=== PATIENT | male | born 1945 | race Caucasian/White ===

== ENCOUNTER 2021-12-24 15:00 | Outpatient (RCR) | payer MEDICARE, OTHER, SELFPAY ==
--- NOTE | 2022-01-14 11:36 | PC.NURSE ---
Patients son, Giovany, Called to get results of Xrays as they missed a call from urgent care last evening. With permission of patient, Xray report was verbally read to son. They had no questions or concerns at this time. Recommended following up with PCP or Urgent care if more questions or concerns arise.
== END 2022-07-22 16:19 | disposition home or self-care (01) ==
PROVIDERS: Visit Provider Physical Medicine & Rehabilitation
DX: Z89.612 Acquired absence of left leg above knee (principal); Z78.9 Other specified health status; R26.89 Other abnormalities of gait and mobility; M25.562 Pain in left knee; Z51.89 Encounter for other specified aftercare
CPT/HCPCS: 97110; 97162

== ENCOUNTER 2022-03-12 13:40 | Emergency (ER) | payer MEDICARE, OTHER, SELFPAY ==
[2022-03-12] VITALS (28 sets, daily range): BP systolic 80–143; BP diastolic 34–93; PULSE 51–71; RESP 24; TEMP 35.6; O2SAT 87–97; BMI 51.7
--- NOTE | 2022-03-12 14:59 | CRLHL7_ITS ---
For Patients: As a result of the Century Cures Act, medical imaging exams and procedure reports are released immediately into your electronic medical record. You may view this report before your referring provider. If you have questions, please contact your health care provider. INDICATION: Shortness of breath. TECHNIQUE: Chest 1 views. COMPARISON: None. FINDINGS: Cardiovascular and mediastinum: Cardiomegaly. Sternotomy wires. Lungs and pleural spaces: Low lung volumes. Subtle interstitial opacities which could be mild pulmonary edema. No sign of infiltrate or mass. No sign of pleural effusion. No pneumothorax. Bones and soft tissues: No significant findings. IMPRESSION: Low lung volumes with cardiomegaly, and possible mild pulmonary edema. Dictated by Adam Leon MD @ 03/12/2022 3:57:52 PM (Electronically Signed)
--- NOTE | 2022-03-12 15:01 | ED.GENADULT ---
HPI - General Adult General Chief complaint: Urogenital Problems, Male Stated complaint: UTI Time Seen by Provider: 03/12/22 14:07 History of Present Illness HPI narrative: This 76-year-old male comes in reporting symptoms of dysuria and shortness of breath. He has some chronic shortness of breath but things have worsened recently. He does arrive with oximetry at 87% on room air. He is taking Lasix 80 mg daily. 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 He does have right lower extremity edema. He also reports symptoms of dysuria with increased frequency. He has had increased weakness over the past 3 days. Related Data Home Medications Medication Instructions Recorded Confirmed atorvastatin 80 mg tablet 80 mg PO DAILY 01/13/22 03/12/22 betamethasone, augmented 0.05 % g topical 01/13/22 01/13/22 topical cream blood sugar diagnostic (Accu-Chek #10 ea 01/13/22 01/13/22 Guide test strips) carvedilol 25 mg tablet 25 mg PO DAILY 01/13/22 03/12/22 citalopram 10 mg tablet 10 mg PO 01/13/22 01/13/22 citalopram 20 mg tablet 20 mg PO 01/13/22 01/13/22 ezetimibe 10 mg tablet 10 mg PO 01/13/22 01/13/22 furosemide 40 mg tablet 80 mg PO Q12H 01/13/22 03/12/22 hydralazine 25 mg tablet 25 mg PO DAILY 01/13/22 03/12/22 insulin glargine 100 unit/mL (3 ml subcut 01/13/22 01/13/22 mL) subcutaneous pen (Lantus Solostar U-100 Insulin) insulin glargine U-300 conc 300 60 unit subcut BID 01/13/22 03/12/22 unit/mL (1.5 mL) subcutaneous pen (Toujeo SoloStar U-300 Insulin) insulin lispro 100 unit/mL subcut 01/13/22 01/13/22 subcutaneous pen (Humalog KwikPen (U-100) Insulin) isosorbide mononitrate 30 mg 30 mg PO DAILY 01/13/22 03/12/22 tablet,extended release 24 hr isosorbide mononitrate 60 mg 60 mg PO DAILY 01/13/22 03/12/22 tablet,extended release 24 hr paroxetine HCl 40 mg tablet ea PO 01/13/22 01/13/22 pen needle, diabetic 31 gauge x #50 ea 01/13/22 01/13/22/ (BD Ultra-Fine Mini Pen Needle) potassium chloride 20 mEq 20 meq PO DAILY 01/13/22 03/12/22 tablet,extended release(part/cryst) tamsulosin 0.4 mg capsule 0.4 mg PO Q24H 01/13/22 03/12/22 amlodipine 2.5 mg tablet 2.5 mg PO DAILY 03/12/22 03/12/22 aspirin 81 mg tablet,delayed 81 mg PO DAILY 03/12/22 03/12/22 release (Adult Low Dose Aspirin) escitalopram oxalate 20 mg tablet 20 mg PO DAILY 03/12/22 03/12/22 ezetimibe 10 mg tablet 10 mg PO DAILY 03/12/22 03/12/22 omeprazole 20 mg capsule,delayed 20 mg PO DAILY 03/12/22 03/12/22 release Previous Rx's Medication Instructions Recorded cyclobenzaprine 10 mg tablet 10 mg PO TID PRN muscle spasm #20 01/13/22 tabs apixaban 5 mg (74 tabs) tablets in See Rx Instructions PO .COMPLEX 03/12/22 a dose pack (M-Files DVT-PE Treat #74 ea 30D Start) cephalexin 500 mg capsule 500 mg PO TID 10 days #30 caps 03/12/22 Allergies Allergy/AdvReac Type Severity Reaction Status Date / Time gabapentin Allergy Unknown Verified 03/12/22 13:52 Review of Systems Status of ROS: Reports: 10 or more systems reviewed and unremarkable except as noted in History and below Narrative: Constitutional: No fevers, no weight gain or loss. Eyes: No discharge. No vision changes. HENT: No congestion, no sore throat, no ear pain. Cardiovascular: No chest pain, no palpitations. Respiratory: No cough. Shortness of breath as described above. Gastrointestinal: No abdominal pain, no vomiting, no diarrhea. Genitourinary: Dysuria symptoms with increased frequency. Musculoskeletal: Normal range of motion. Skin: No rashes, no pruritis. Neurological: No dizziness, weakness, sensory change, speech change. Endo/Heme/Allergies: No bruising or bleeding. No polydipsia. Pysch: no suicidality, no anxiety, no insomnia. All other systems reviewed and are negative. PFSH PFS Social History Smoking Status: Former smoker How often do you have a drink containing alcohol: monthly or less How often do you have six or more drinks on one occasion: Never AUDIT-C Alcohol total score: 1 Non-prescribed substance use: denies use Exam Narrative: Exam Narrative: Constitutional: Well-developed, well-nourished, no acute distress. HEENT: Normocephalic, atraumatic. Neck: Normal range of motion. Nontender. Supple. Heart: Irregular. No murmurs. Normal rate. Intact distal pulses. Lungs: Bilateral wheezes. No chest discomfort. Abdomen: Normal bowel sounds. Nontender. No rebound tenderness. Genitalia: Deferred. Back: Normal range of motion. Extremities: Left above the knee amputation. Right lower extremity pedal edema. Skin: Intact. No rash. Warm. No erythema or pallor. Neurologic: No altered sensation. No weakness. Alert and oriented. Psychiatric: No suicidality. No anxiety or depression. No insomnia. Nursing notes and vitals signs are reviewed. Const: Vital Signs, click to edit/add: Vital Signs - 24 hr 03/12/22 13:45 03/12/22 14:00 03/12/22 14:36 Temperature 96.0 F L Pulse Rate 62 Pulse Rate [Right Pulse Oximeter] 71 Respiratory Rate 24 Blood Pressure Blood Pressure [Le ft Upper Arm] 143/73 H Pulse Oximetry 87 L 95 95 Oxygen Delivery Me thod Room Air Nasal Cannula Nasal Cannula Oxygen Flow Rate 1 1 03/12/22 14:45 03/12/22 15:00 03/12/22 15:04 Temperature Pulse Rate 67 66 71 Pulse Rate [Right Pulse Oximeter] Respiratory Rate Blood Pressure 103/43 L Blood Pressure [Le ft Upper Arm] Pulse Oximetry 95 96 96 Oxygen Delivery Me thod Nasal Cannula Nasal Cannula Nasal Cannula Oxygen Flow Rate 1 1 1 03/12/22 15:15 03/12/22 15:30 03/12/22 15:32 Temperature Pulse Rate 65 59 L 62 Pulse Rate [Right Pulse Oximeter] Respiratory Rate Blood Pressure 97/34 L Blood Pressure [Le ft Upper Arm] Pulse Oximetry 96 94 95 Oxygen Delivery Me thod Nasal Cannula Nasal Cannula Nasal Cannula Oxygen Flow Rate 1 1 1 03/12/22 15:45 03/12/22 16:00 03/12/22 16:06 Temperature Pulse Rate 70 54 L 60 Pulse Rate [Right Pulse Oximeter] Respiratory Rate Blood Pressure 110/50 L Blood Pressure [Le ft Upper Arm] Pulse Oximetry 94 93 91 Oxygen Delivery Me thod Nasal Cannula Nasal Cannula Nasal Cannula Oxygen Flow Rate 1 1 1 03/12/22 16:07 03/12/22 16:15 03/12/22 16:30 Temperature Pulse Rate 54 L 62 Pulse Rate [Right Pulse Oximeter] Respiratory Rate Blood Pressure Blood Pressure [Le ft Upper Arm] Pulse Oximetry 96 90 94 Oxygen Delivery Me thod Nasal Cannula Nasal Cannula Nasal Cannula Oxygen Flow Rate 1 1 1 03/12/22 16:31 03/12/22 16:45 03/12/22 17:11 Temperature Pulse Rate 64 61 63 Pulse Rate [Right Pulse Oximeter] Respiratory Rate Blood Pressure 112/90 H Blood Pressure [Le ft Upper Arm] Pulse Oximetry 88 93 97 Oxygen Delivery Me thod Nasal Cannula Nasal Cannula Nasal Cannula Oxygen Flow Rate 1 1 1 03/12/22 17:15 Temperature Pulse Rate 54 L Pulse Rate [Right Pulse Oximeter] Respiratory Rate Blood Pressure Blood Pressure [Le ft Upper Arm] Pulse Oximetry 95 Oxygen Delivery Me thod Nasal Cannula Oxygen Flow Rate 1 Course Vital Signs Vital signs: Initial Vital Signs Temperature 96.0 F L 03/12/22 13:45 Temperature Source Temporal Artery Scan 03/12/22 13:45 Pulse Rate 71 03/12/22 13:45 Respiratory Rate 24 03/12/22 13:45 Blood Pressure 143/73 H 03/12/22 13:45 Blood Pressure Mean 96 03/12/22 13:45 Blood Pressure Position Sitting 03/12/22 13:45 Pulse Oximetry 87 L 03/12/22 13:45 Oxygen Delivery Method 03/12/22 13:45 Vital Signs Temperature 96.0 F L 03/12/22 13:45 Pulse Rate 71 03/12/22 13:45 Respiratory Rate 24 03/12/22 13:45 Blood Pressure 143/73 H 03/12/22 13:45 Pulse Oximetry 87 L 03/12/22 13:45 Oxygen Delivery Method 03/12/22 13:45 Temperature 96.0 F L 03/12/22 13:45 Pulse Rate 54 L 03/12/22 17:15 Respiratory Rate 24 03/12/22 13:45 Blood Pressure 112/90 H 03/12/22 16:31 Pulse Oximetry 95 03/12/22 17:15 Oxygen Delivery Method 03/12/22 17:15 Oxygen Flow Rate 1 03/12/22 17:15 Medical Decision Making MDM Narrative Medical decision making narrative: This patient comes in with primary complaint of dysuria symptoms. Urinalysis shows obvious sign of infection. The patient received an IV dose of Rocephin 1000 mg. He also has some acute on chronic shortness of breath. He does arrive with oximetry in the upper 80s% at rest. He did receive 1 L of nasal cannula oxygen and this brought him up nicely into the mid to upper 90s%. Chest x-ray shows no acute findings. His B type natriuretic peptide returns at 2470. Glucose is 210. His D-dimer returns a bit above [address] scan is ordered to rule out pulmonary embolism. He does have some small clots in the segmental pulmonary vasculature. These are not causing any significant consequences and there is no right heart strain. I relayed this information to the patient and recommended anticoagulation. He agreed to Eliquis which is given the 1st tablet for today and a prescription going forward. Was noted that his heart rate sometimes dips down to 40 or even the upper 30s. He is on hydralazine, amlodipine, and Coreg. His Coreg dosing is 25 mg twice daily. His blood pressure was around 110? systolic and heart rate routinely in the 40s or low 50s. I advised him to discontinue the Coreg for now and follow-up with his primary physician. He wishes to return home. I did turn off his oxygen and he was maintaining sufficient oximetry in the low 90s% on room air. He received a prescription for Keflex also. Lab Data Labs: Lab Results 03/12/22 03/12/22 03/12/22 Range/Units 14:37 14:51 14:59 WBC 10.64 (4.50-11.00) K/uL RBC 3.81 L (4.30-5.90) m/uL Hgb 11.7 L (13.5-17.5) gm/dL Hct 36.8 L (37.0-53.0) % MCV 97 (80-100) fL MCH 31 (26-34) pg MCHC 32 (32-36) gm/dL RDW Coeff of Danny 14.5 (11.5-15.5) % Plt Count 89 L (140-440) K/uL Neut % (Auto) 72.5 H (42.0-72.0) % Lymph % (Auto) 13.2 L (20-44) % Ballard % (Auto) 12.4 H (0.0-11.0) % Eos % (Auto) 1.4 (0.0-7.0) % Baso % (Auto) 0.2 (0.0-3.0) % Neut # (Auto) 7.70 H (1.7-7.0) K/uL Lymph # (Auto) 1.40 (0.90-2.90) K/uL Ballard # (Auto) 1.30 H (0.00-0.90) K/UL Eos # (Auto) 0.15 (0.00-0.50) K/uL Baso # (Auto) 0.02 (0.00-0.30) K/uL D-Dimer Quant (PE/DVT) (0.00-0.50) ug/ml Sodium (135-149) mmol/L Potassium (3.6-5.1) mmol/L Chloride (96-114) mmol/L Carbon Dioxide (20-32) mmol/L BUN (7-30) mg/dL Creatinine (0.5-1.5) mg/dL Estimated Creat Clear Estimated GFR ml/min Glucose (60-115) mg/dL Calcium (8.4-10.6) mg/dL NT-Pro-B Natriuret Pep pg/mL Urine Color Yellow (Yellow) Urine Appearance Cloudy A (Clear) Urine pH 6.0 (5.0-8.5) Ur Specific [place] 1.015 (1.000-1.030) Urine Protein 2+ A (Negative) Urine Glucose (UA) Negative (Negative) Urine Ketones Negative (Negative) Urine Blood 3+ A (Negative) Urine Nitrite Positive A (Negative) Urine Bilirubin Negative (Negative) Urine Urobilinogen 2.0 A (0.2-1.0) Ur Leukocyte Esterase 3+ A (Negative) Urine RBC >100 A (0-2) Urine WBC >100 A (0-5) Ur Squamous Epith Cells None (None-Few) Urine Bacteria Many A (None) SARS-CoV-2 (PCR) Negative SARS-CoV-2 (Negative) Influenza Type A (PCR) Negative PCR FLU A (Negative) Influenza Type B (PCR) Negative PCR FLU B (Negative) RSV (PCR) Negative PCR RSV (Negative) POC Troponin I (0.01-0.04) ng/ml 03/12/22 03/12/22 03/12/22 Range/Units 14:59 14:59 14:59 WBC (4.50-11.00) K/uL RBC (4.30-5.90) m/uL Hgb (13.5-17.5) gm/dL Hct (37.0-53.0) % MCV (80-100) fL MCH (26-34) pg MCHC (32-36) gm/dL RDW Coeff of Danny (11.5-15.5) % Plt Count (140-440) K/uL Neut % (Auto) (42.0-72.0) % Lymph % (Auto) (20-44) % Ballard % (Auto) (0.0-11.0) % Eos % (Auto) (0.0-7.0) % Baso % (Auto) (0.0-3.0) % Neut # (Auto) (1.7-7.0) K/uL Lymph # (Auto) (0.90-2.90) K/uL Ballard # (Auto) (0.00-0.90) K/UL Eos # (Auto) (0.00-0.50) K/uL Baso # (Auto) (0.00-0.30) K/uL D-Dimer Quant (PE/DVT) 2.07 H (0.00-0.50) ug/ml Sodium 136 (135-149) mmol/L Potassium 3.8 (3.6-5.1) mmol/L Chloride 100 (96-114) mmol/L Carbon Dioxide 31 (20-32) mmol/L BUN 24 (7-30) mg/dL Creatinine 1.2 (0.5-1.5) mg/dL Estimated Creat Clear 51.46 Estimated GFR 63 ml/min Glucose 210 H (60-115) mg/dL Calcium 8.6 (8.4-10.6) mg/dL NT-Pro-B Natriuret Pep 2470 pg/mL Urine Color (Yellow) Urine Appearance (Clear) Urine pH (5.0-8.5) Ur Specific [place] (1.000-1.030) Urine Protein (Negative) Urine Glucose (UA) (Negative) Urine Ketones (Negative) Urine Blood (Negative) Urine Nitrite (Negative) Urine Bilirubin (Negative) Urine Urobilinogen (0.2-1.0) Ur Leukocyte Esterase (Negative) Urine RBC (0-2) Urine WBC (0-5) Ur Squamous Epith Cells (None-Few) Urine Bacteria (None) SARS-CoV-2 (PCR) (Negative) Influenza Type A (PCR) (Negative) Influenza Type B (PCR) (Negative) RSV (PCR) (Negative) POC Troponin I (0.01-0.04) ng/ml 03/12/22 03/12/22 Range/Units 15:00 16:54 WBC (4.50-11.00) K/uL RBC (4.30-5.90) m/uL Hgb (13.5-17.5) gm/dL Hct (37.0-53.0) % MCV (80-100) fL MCH (26-34) pg MCHC (32-36) gm/dL RDW Coeff of Danny (11.5-15.5) % Plt Count (140-440) K/uL Neut % (Auto) (42.0-72.0) % Lymph % (Auto) (20-44) % Ballard % (Auto) (0.0-11.0) % Eos % (Auto) (0.0-7.0) % Baso % (Auto) (0.0-3.0) % Neut # (Auto) (1.7-7.0) K/uL Lymph # (Auto) (0.90-2.90) K/uL [place] # (Auto) (0.00-0.90) K/UL Eos # (Auto) (0.00-0.50) K/uL Baso # (Auto) (0.00-0.30) K/uL D-Dimer Quant (PE/DVT) (0.00-0.50) ug/ml Sodium (135-149) mmol/L Potassium (3.6-5.1) mmol/L Chloride (96-114) mmol/L Carbon Dioxide (20-32) mmol/L BUN (7-30) mg/dL Creatinine (0.5-1.5) mg/dL Estimated Creat Clear Estimated GFR ml/min Glucose (60-115) mg/dL Calcium (8.4-10.6) mg/dL NT-Pro-B Natriuret Pep pg/mL Urine Color (Yellow) Urine Appearance (Clear) Urine pH (5.0-8.5) Ur Specific [place] (1.000-1.030) Urine Protein (Negative) Urine Glucose (UA) (Negative) Urine Ketones (Negative) Urine Blood (Negative) Urine Nitrite (Negative) Urine Bilirubin (Negative) Urine Urobilinogen (0.2-1.0) Ur Leukocyte Esterase (Negative) Urine RBC (0-2) Urine WBC (0-5) Ur Squamous Epith Cells (None-Few) Urine Bacteria (None) SARS-CoV-2 (PCR) (Negative) Influenza Type A (PCR) (Negative) Influenza Type B (PCR) (Negative) RSV (PCR) (Negative) POC Troponin I 0.05 H 0.04 (0.01-0.04) ng/ml Imaging Data Chest x-ray: Radiologist's impression: Low lung volumes with cardiomegaly, and possible mild pulmonary edema. CT scan - chest: Radiologist's impression: Tiny pulmonary emboli in right upper lobe segmental pulmonary artery. No right heart strain. Cardiomegaly with severe coronary artery calcifications. No focal consolidations. ECG Data Attestation: I personally reviewed and interpreted this ECG as follows: Interpretation: Atrial fibrillation. Right bundle branch block. Rate is 59 beats per minute. There are no specific ST or T-wave abnormalities. Discharge Plan Discharge Clinical Impression: Urinary tract infection, Pulmonary embolism Patient Disposition: Home w/ Parent or Adult Condition: Stable Additional Instructions: Take medication as prescribed. Hold Coreg and follow-up with primary physician to review blood pressure and heart rate management. It would be helpful to measure blood pressure and heart rate at home if possible for more information in this regard. Return if worsening. Prescriptions: New cephalexin 500 mg capsule 500 mg PO TID 10 Days Qty: 30 0RF Eliquis DVT-PE Treat 30D Start 5 mg (74 tabs) tablets,dose pack See Rx Instructions PO .COMPLEX Qty: 74 0RF Rx Instructions: orally per package directions No Action citalopram 10 mg tablet 10 mg PO citalopram 20 mg tablet 20 mg PO isosorbide mononitrate 60 mg tablet extended release 24 hr 60 mg PO DAILY Label Comments: TAKE 1 TABLET BY MOUTH EVERY DAY betamethasone, augmented 0.05 % cream topical potassium chloride 20 mEq tablet,ER particles/crystals 20 meq PO DAILY carvedilol 25 mg tablet 25 mg PO DAILY Label Comments: TAKE 1 TABLET BY MOUTH TWICE DAILY atorvastatin 80 mg tablet 80 mg PO DAILY tamsulosin 0.4 mg capsule 0.4 mg PO Q24H furosemide 40 mg tablet 80 mg PO Q12H Label Comments: TAKE 2 TABLETS BY MOUTH TWICE DAILY insulin lispro [Humalog KwikPen Insulin] 100 unit/mL insulin pen subcut hydralazine 25 mg tablet 25 mg PO DAILY Label Comments: TAKE 1 TABLET BY MOUTH TWICE DAILY ezetimibe 10 mg tablet 10 mg PO Label Comments: TAKE 1 TABLET BY MOUTH DAILY isosorbide mononitrate 30 mg tablet extended release 24 hr 30 mg PO DAILY Label Comments: TAKE 1 TABLET BY MOUTH EVERY DAY Toujeo SoloStar U-300 Insulin 300 unit/mL (1.5 mL) insulin pen 60 unit subcut BID Label Comments: INJECT 70 UNITS TWICE DAILY paroxetine HCl 40 mg tablet PO Label Comments: TAKE 1 TABLET BY MOUTH DAILY insulin glargine [Lantus Solostar U-100 Insulin] 100 unit/mL (3 mL) insulin pen subcut Label Comments: INJECT 60 UNITS UNDER THE SKIN TWICE DAILY (DME) pen needle, diabetic [BD Ultra-Fine Mini Pen Needle] 31 gauge x 3/16 needle See Rx Instructions .ROUTE .MEDSUPPLY Qty: 50 Rx Instructions: As directed (DME) Accu-Chek Guide test strips Strip See Rx Instructions .ROUTE .MEDSUPPLY Qty: 10 Label Comments: TEST THREE TIMES DAILY Rx Instructions: As directed cyclobenzaprine 10 mg tablet 10 mg PO TID PRN (Reason: muscle spasm) Qty: 20 0RF amlodipine 2.5 mg tablet 2.5 mg PO DAILY aspirin [Adult Low Dose Aspirin] 81 mg tablet,delayed release (DR/EC) 81 mg PO DAILY escitalopram oxalate 20 mg tablet 20 mg PO DAILY ezetimibe 10 mg tablet 10 mg PO DAILY omeprazole 20 mg capsule,delayed release(/EC) 20 mg PO DAILY Follow Up/Referrals: Provider,Not a Local [Primary Care Provider] - Stand Alone Forms: [employer] Info Instructions
[2022-03-12 15:03] LABS: Appearance Urine Cloudy (Clear); Bilirubin Urine Negative (Negative); Blood Urine 3+ (Negative); Color Urine Yellow (Yellow); Glucose Urine Negative (Negative); Ketones Urine Negative (Negative); Leukocyte Esterase Urine 3+ (Negative); Nitrite Urine Positive (Negative); Protein Urine 2+ (Negative); Specific Gravity Urine 1.015 (1.000-1.030)
[2022-03-12 15:17] LABS: Bacteria Urine Many; RBC Urine >100 (0-2); WBC Urine >100 (0-5)
[2022-03-12 15:24] LABS: Troponin, Point-of-Care* 0.05 ng/ml (0.01-0.04)
[2022-03-12 15:27] LABS: Basophils Absolute Auto 0.02 K/uL (0.00-0.30); Basophils Percent Auto 0.2 % (0.0-3.0); Eosinophils Absolute Auto 0.15 K/uL (0.00-0.50); Eosinophils Percent Auto 1.4 % (0.0-7.0); Hematocrit 36.8 % (37.0-53.0); Hemoglobin* 11.7 gm/dL (13.5-17.5); Immature Granulocytes Abs Auto 0.03 K/uL (0.00-0.30); Immature Granulocytes Pct Auto 0.3 %; Lymphocytes Percent Auto 13.2 % (20-44); Mean Corpuscular HGB Conc 32 gm/dL (32-36); Mean Corpuscular Hemoglobin 31 pg (26-34); Mean Corpuscular Volume 97 fL (80-100); Monocytes Percent Auto 12.4 % (0.0-11.0); Neutrophils Percent Auto 72.5 % (42.0-72.0); Platelet Count* 89 K/uL (140-440); RDW Coefficient of Variation % 14.5 % (11.5-15.5); Red Blood Count 3.81 m/uL (4.30-5.90); White Blood Count* 10.64 K/uL (4.50-11.00)
[2022-03-12 15:33] LABS: Slide Review Reflex No
[2022-03-12 15:40] LABS: Chloride* 100 mmol/L (96-114); Potassium* 3.8 mmol/L (3.6-5.1); Sodium* 136 mmol/L (135-149)
[2022-03-12 15:43] LABS: Carbon Dioxide* 31 mmol/L (20-32); Creatinine* 1.2 mg/dL (0.5-1.5); Est. Creatinine Clearance* 51.46; Estimated Glomerular Filt Rate 63 ml/min
[2022-03-12 15:44] LABS: Blood Urea Nitrogen* 24 mg/dL (7-30); Calcium* 8.6 mg/dL (8.4-10.6); Glucose* 210 mg/dL (60-115)
[2022-03-12 15:45] LABS: D Dimer Quantitative* 2.07 ug/ml (0.00-0.50)
[2022-03-12 15:54] LABS: PCR FLU A Negative PCR FLU A (Negative); PCR FLU B Negative PCR FLU B (Negative); PCR RSV Negative PCR RSV (Negative)
[2022-03-12] MEDS: cefTRIAXone 1 GM in 0.9 % SODIUM CHLORIDE Mini-bag 100 ML IVPB (15:56)
[2022-03-12 16:02] LABS: SARS PCR* Negative SARS-CoV-2 (Negative)
[2022-03-12 16:18] LABS: NT Pro B Type NatriureticPept* 2470 pg/mL
--- NOTE | 2022-03-12 16:31 | CRLHL7_ITS ---
For Patients: As a result of the Century Cures Act, medical imaging exams and procedure reports are released immediately into your electronic medical record. You may view this report before your referring provider. If you have questions, please contact your health care provider. INDICATION: [id number]. TECHNIQUE: CT chest PE was acquired with 95 cc Isovue 370 IV contrast. COMPARISON: None. FINDINGS: Heart and vasculature: Contrast opacification of the pulmonary arterial tree is adequate. Tiny pulmonary emboli in right upper lobe segmental pulmonary artery (series 4/image 82). Cardiomegaly. Mild enlargement of the pulmonary artery.. Coronary artery calcifications. Aortic arch calcifications. Postsurgical changes of CABG. Lungs and pleura: No suspicious nodules or infiltrates. No pleural effusions, pleural thickening, or pneumothorax. Lymph nodes/mediastinum: No mediastinal, hilar, or axillary adenopathy. Chest wall: No masses. Upper abdomen: No acute or significant findings. Bones: Unremarkable for age. IMPRESSION: Tiny pulmonary emboli in right upper lobe segmental pulmonary artery. No right heart strain. Cardiomegaly with severe coronary artery calcifications. No focal consolidations. Case discussed with King Hendrickson at 3:30 p.m. on 03/12/2022. Please note that all CT scans at this facility use dose modulation, iterative reconstruction, and/or weight-based dosing when appropriate to reduce radiation dose to as low as reasonably achievable. Dictated by Adam Leon MD @ 03/12/2022 5:33:46 PM (Electronically Signed)
[2022-03-12 17:19] LABS: Troponin, Point-of-Care* 0.04 ng/ml (0.01-0.04)
[2022-03-12] MEDS: APIXABAN 5 MG TABLET 10 MG PO (19:04)
== END 2022-03-12 19:27 | disposition home or self-care (01) ==
PROVIDERS: Emergency Provider Emergency Medicine Emergency Medical Services
DX: N39.0 Urinary tract infection, site not specified (principal); I26.99 Other pulmonary embolism without acute cor pulmonale
CPT/HCPCS: 36415; 71045; 71260; 80048; 81001; 83880; 84484; 85025; 85379; 87086; 87186; 87502; 87631; 87634; 87635; 93005; 96365; 99285; A9270; J0696; Q9967

== ENCOUNTER 2022-03-16 12:31 | Emergency (ER) | payer MEDICARE, OTHER, SELFPAY ==
[2022-03-16 12:52] VITALS: BP 164/54; PULSE 81; RESP 20; TEMP 36.3; O2SAT 90; BMI 51.7
--- NOTE | 2022-03-16 13:48 | ED.GENADULT ---
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 He has been on the Eliquis now for few days, and also has been on Keflex. His UTI symptoms are gone. 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 No shortness of breath, no itching, no fevers. He sees his regular physician [facility] in the next 2 days Related Data Home Medications Medication Instructions Recorded Confirmed atorvastatin 80 mg tablet 80 mg PO DAILY 01/13/22 03/12/22 betamethasone, augmented 0.05 % g topical 01/13/22 01/13/22 topical cream blood sugar diagnostic (Accu-Chek #10 ea 01/13/22 01/13/22 Guide test strips) carvedilol 25 mg tablet 25 mg PO DAILY 01/13/22 03/12/22 citalopram 10 mg tablet 10 mg PO 01/13/22 01/13/22 citalopram 20 mg tablet 20 mg PO 01/13/22 01/13/22 ezetimibe 10 mg tablet 10 mg PO 01/13/22 01/13/22 furosemide 40 mg tablet 80 mg PO Q12H 01/13/22 03/12/22 hydralazine 25 mg tablet 25 mg PO DAILY 01/13/22 03/12/22 insulin glargine 100 unit/mL (3 ml subcut 01/13/22 01/13/22 mL) subcutaneous pen (Lantus Solostar U-100 Insulin) insulin glargine U-300 conc 300 60 unit subcut BID 01/13/22 03/12/22 unit/mL (1.5 mL) subcutaneous pen (Toujeo SoloStar U-300 Insulin) insulin lispro 100 unit/mL subcut 01/13/22 01/13/22 subcutaneous pen (Humalog KwikPen (U-100) Insulin) isosorbide mononitrate 30 mg 30 mg PO DAILY 01/13/22 03/12/22 tablet,extended release 24 hr isosorbide mononitrate 60 mg 60 mg PO DAILY 01/13/22 03/12/22 tablet,extended release 24 hr paroxetine HCl 40 mg tablet ea PO 01/13/22 01/13/22 pen needle, diabetic 31 gauge x #50 ea 01/13/22 01/13/22/ (BD Ultra-Fine Mini Pen Needle) potassium chloride 20 mEq 20 meq PO DAILY 01/13/22 03/12/22 tablet,extended release(part/cryst) tamsulosin 0.4 mg capsule 0.4 mg PO Q24H 01/13/22 03/12/22 amlodipine 2.5 mg tablet 2.5 mg PO DAILY 03/12/22 03/12/22 aspirin 81 mg tablet,delayed 81 mg PO DAILY 03/12/22 03/12/22 release (Adult Low Dose Aspirin) escitalopram oxalate 20 mg tablet 20 mg PO DAILY 03/12/22 03/12/22 ezetimibe 10 mg tablet 10 mg PO DAILY 03/12/22 03/12/22 omeprazole 20 mg capsule,delayed 20 mg PO DAILY 03/12/22 03/12/22 release Previous Rx's Medication Instructions Recorded cyclobenzaprine 10 mg tablet 10 mg PO TID PRN muscle spasm #20 01/13/22 tabs apixaban 5 mg (74 tabs) tablets in See Rx Instructions PO .COMPLEX 03/12/22 a dose pack (Eliquis DVT-PE Treat #74 ea 30D Start) cephalexin 500 mg capsule 500 mg PO TID 10 days #30 caps 03/12/22 Allergies Allergy/AdvReac Type Severity Reaction Status Date / Time gabapentin Allergy Unknown Verified 03/12/22 13:52 Review of Systems Status of ROS: Reports: 6 or more systems reviewed and unremarkable except as noted in History and below [facility] Social History Smoking Status: Former smoker How often do you have a drink containing alcohol: monthly or less How often do you have six or more drinks on one occasion: Never AUDIT-C Alcohol total score: 1 Non-prescribed substance use: denies use Exam Narrative: Exam Narrative: Objective: The patient's vital signs look unremarkable, he had his Coreg. A couple days goes his pulse was somewhat low. He will discuss this is the regular doctor the next couple of days Afebrile O2 sat 90% on room air His back exam shows reddish confluent type rash and is upper buttock crease area and spreading any macular way over his mid and upper back. His right lower extremity which has had chronic stasis changes and poor circulation has some petechial type rash but also some of that same reddened macular type rash. He denies any throat tightening he denies any breathing difficulties able to speak in full sentences Const: Vital Signs, click to edit/add: Vital Signs - 24 hr 03/16/22 12:52 Temperature 97.3 F L Pulse Rate [Right Pulse Oximeter] 81 Respiratory Rate 20 Blood Pressure [Ri ght Upper Arm] 164/54 H Pulse Oximetry 90 Oxygen Delivery Me thod Room Air Course Vital Signs Vital signs: Initial Vital Signs Temperature 97.3 F L 03/16/22 12:52 Temperature Source Temporal Artery Scan 03/16/22 12:52 Pulse Rate 81 03/16/22 12:52 Respiratory Rate 20 03/16/22 12:52 Blood Pressure 164/54 H 03/16/22 12:52 Blood Pressure Mean 90 03/16/22 12:52 Blood Pressure Position Sitting 03/16/22 12:52 Pulse Oximetry 90 03/16/22 12:52 Oxygen Delivery Method 03/16/22 12:52 Vital Signs Temperature 97.3 F L 03/16/22 12:52 Pulse Rate 81 03/16/22 12:52 Respiratory Rate 20 03/16/22 12:52 Blood Pressure 164/54 H 03/16/22 12:52 Pulse Oximetry 90 03/16/22 12:52 Oxygen Delivery Method 03/16/22 12:52 Temperature 97.3 F L 03/16/22 12:52 Pulse Rate 81 03/16/22 12:52 Respiratory Rate 20 03/16/22 12:52 Blood Pressure 164/54 H 03/16/22 12:52 Pulse Oximetry 90 03/16/22 12:52 Oxygen Delivery Method 03/16/22 12:52 Medical Decision Making MDM Narrative Medical decision making narrative: At this point I think the rashes are likely related to his antibiotic use, rather than his Eliquis. There is some component of the left right leg rash that looks a little different than the back rash however I have seen this happen in allergic-type reactions and would recommend he stop the Keflex given his UTI symptoms are resolved. Or him continue his Eliquis as that is needed for his pulmonary embolus for review just seen for, and I think he can review this with his regular doctor in the next 2 days, return to ED sooner for any breathing difficulty or other concerns. He has were comfortable plan will follow up as directed. They can also discuss the Coreg usage with his primary care Discharge Plan Discharge Clinical Impression: Rash Patient Disposition: Home w/ Parent or Adult Condition: Stable Additional Instructions: Stop Keflex, may continue Eliquis for now, update regular doctor next couple of days with follow-up. Suspicion is that your rashes due to the Keflex and Rocephin he received in the emergency department. He should avoid cephalosporins in the future. Would recheck the rash with your doctor in the next couple of days, return to ED sooner any problems or concerns difficulty breathing tongue swelling etc.. Activity Level: Light activity Discharge Diet: Diabetic Prescriptions: No Action citalopram 10 mg tablet 10 mg PO citalopram 20 mg tablet 20 mg PO isosorbide mononitrate 60 mg tablet extended release 24 hr 60 mg PO DAILY Label Comments: TAKE 1 TABLET BY MOUTH EVERY DAY betamethasone, augmented 0.05 % cream topical potassium chloride 20 mEq tablet,ER particles/crystals 20 meq PO DAILY carvedilol 25 mg tablet 25 mg PO DAILY Label Comments: TAKE 1 TABLET BY MOUTH TWICE DAILY atorvastatin 80 mg tablet 80 mg PO DAILY tamsulosin 0.4 mg capsule 0.4 mg PO Q24H furosemide 40 mg tablet 80 mg PO Q12H Label Comments: TAKE 2 TABLETS BY MOUTH TWICE DAILY insulin lispro [Humalog KwikPen Insulin] 100 unit/mL insulin pen subcut hydralazine 25 mg tablet 25 mg PO DAILY Label Comments: TAKE 1 TABLET BY MOUTH TWICE DAILY ezetimibe 10 mg tablet 10 mg PO Label Comments: TAKE 1 TABLET BY MOUTH DAILY isosorbide mononitrate 30 mg tablet extended release 24 hr 30 mg PO DAILY Label Comments: TAKE 1 TABLET BY MOUTH EVERY DAY Toujeo SoloStar U-300 Insulin 300 unit/mL (1.5 mL) insulin pen 60 unit subcut BID Label Comments: INJECT 70 UNITS TWICE DAILY paroxetine HCl 40 mg tablet PO Label Comments: TAKE 1 TABLET BY MOUTH DAILY insulin glargine [Lantus Solostar U-100 Insulin] 100 unit/mL (3 mL) insulin pen subcut Label Comments: INJECT 60 UNITS UNDER THE SKIN TWICE DAILY (DME) pen needle, diabetic [BD Ultra-Fine Mini Pen Needle] 31 gauge x 3/16 needle See Rx Instructions .ROUTE .MEDSUPPLY Qty: 50 Rx Instructions: As directed (DME) Accu-Chek Guide test strips Strip See Rx Instructions .ROUTE .MEDSUPPLY Qty: 10 Label Comments: TEST THREE TIMES DAILY Rx Instructions: As directed cyclobenzaprine 10 mg tablet 10 mg PO TID PRN (Reason: muscle spasm) Qty: 20 0RF amlodipine 2.5 mg tablet 2.5 mg PO DAILY aspirin [Adult Low Dose Aspirin] 81 mg tablet,delayed release (DR/EC) 81 mg PO DAILY escitalopram oxalate 20 mg tablet 20 mg PO DAILY ezetimibe 10 mg tablet 10 mg PO DAILY omeprazole 20 mg capsule,delayed release(DR/EC) 20 mg PO DAILY cephalexin 500 mg capsule 500 mg PO TID 10 Days Qty: 30 0RF Eliquis DVT-PE Treat 30D Start 5 mg (74 tabs) tablets,dose pack See Rx Instructions PO .COMPLEX Qty: 74 0RF Rx Instructions: orally per package directions Follow Up/Referrals: Provider,Not a Local [Primary Care Provider] - Stand Alone Forms: MyHealth Info Instructions
== END 2022-03-16 14:26 | disposition home or self-care (01) ==
LOC: ED 13:49
PROVIDERS: Emergency Provider Family Medicine
DX: R21 Rash and other nonspecific skin eruption (principal); T36.95XA Adverse effect of unspecified systemic antibiotic, initial encounter
CPT/HCPCS: 99283; 99284

== ENCOUNTER 2024-04-30 14:01 | Outpatient (CLI) | payer MEDICARE, OTHER, SELFPAY | END 2024-04-30 14:02 | disposition home or self-care (01) | LOC: AMB 05-05 10:52 | PROVIDERS: Visit Provider Family Medicine | DX: R53.1 Weakness (principal) | CPT/HCPCS: A0998 ==

== ENCOUNTER 2024-05-29 08:34 | Outpatient (CLI) | payer MEDICARE, OTHER, SELFPAY | END 2024-05-29 08:35 | disposition home or self-care (01) | LOC: AMB 06-01 10:26 | PROVIDERS: Visit Provider Internal Medicine | DX: I46.9 Cardiac arrest, cause unspecified (principal) | CPT/HCPCS: A0429 ==